=== PATIENT | male | born 1995 ===

== ENCOUNTER 2021-07-18 16:49 | Emergency (ER) | payer SELFPAY ==
[2021-07-18] MEDS ORDERED: TETANUS,DIPH,PERTUSS(ACELL) VACCINE 0.5 ML SYRINGE IM ONE (16:56)
[2021-07-18] MEDS ORDERED: HYDROcodone/ACETAMINOPHEN 7.5-325MG TAB PO ONE (16:56)
[2021-07-18] MEDS ORDERED: LACTATED RINGERS 1,000 ML IV ONE (17:17)
[2021-07-18 17:37] LABS: Basophils % (Auto) 0.7 % (0.0-1.8); Eosinophils # (Auto) 0.1 K/mm3 (0.0-0.4); Eosinophils % (Auto) 1.2 % (0.0-4.3); Hematocrit 41.4 % (35.5-45.6); Hemoglobin 14.3 gm/dl (11.8-15.2); Lymphocytes # (Auto) 2.1 K/mm3 (1.2-5.4); Mean Corpuscular HGB Conc 35 % (32-34); Mean Corpuscular Volume 79 fl (84-94); Monocytes # (Auto) 0.7 K/mm3 (0.0-0.8); Monocytes % (Auto) 9.4 % (0.0-7.3); Platelet Count 266 K/mm3 (140-440); Red Blood Count 5.28 M/mm3 (3.65-5.03); Red Cell Distribution Width 13.5 % (13.2-15.2)
--- NOTE | 2021-07-18 17:55 | XRay Report ---
XR hip 2-3V RT INDICATION / CLINICAL INFORMATION: right hip pain after hitting against metal lift. COMPARISON: None available. FINDINGS: BONES/JOINT(S): No acute fracture or subluxation. No significant degenerative changes. SOFT TISSUES: No significant abnormality. ADDITIONAL FINDINGS: None. Signer Name: Mitchell Gold MD Signed: 07/18/2021 5:51 PM Workstation Name: [id number]
[2021-07-18 17:57] LABS: Creatine Kinase MB 1.3 ng/mL (0.0-4.0)
[2021-07-18 17:59] LABS: Alanine Aminotransferase 15 units/L (7-56); Albumin 4.9 g/dL (3.9-5); BUN/Creatinine Ratio 19; Blood Urea Nitrogen 13 mg/dL (9-20); Calcium 9.5 mg/dL (8.4-10.2); Hemolysis Index 10
--- NOTE | 2021-07-18 18:07 | Emergency Department Report ---
- General Chief complaint: Burn/Smoke Inhalation Stated complaint: ELECTRICAL SHOCK Time Seen by Provider: 07/18/21 16:54 Source: patient, [employer] worker Mode of arrival: Ambulatory Limitations: Language Barrier - History of Present Illness Initial comments: Rakesh, security systems specialist used for [place] interpretation for HPI and review of systems Patient is a 26-year-old male presents emergency room with complaints of an electrical shock and burn that occurred at 2 PM today. 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 He states that there was a cable hanging from the ceiling and he grabbed it with his right hand. He states he then felt a shock through his hand and his arm. He states he has pain in his hand and a tingling sensation. He states he has some mild chest pain and was feeling palpitations like his heart was racing. He states that the jolt pushed him backwards and he hit the right side of his hip against a lift he was on. He did not fall off the left. He denies any shortness of breath, loss of consciousness, vomiting, vision changes, weakness. No past medical history. No allergies to medications. He is unsure of his last tetanus immunization. - Related Data Allergies Allergy/AdvReac Type Severity Reaction Status Date / Time No Known Allergies Allergy Unverified 07/18/21 16:53 Abscess Boil HPI - HPI Chief Complaint: Burn/Smoke Inhalation Stated Complaint: ELECTRICAL SHOCK Time Seen by Provider: 07/18/21 16:54 Allergies/Adverse Reactions: Allergies Allergy/AdvReac Type Severity Reaction Status Date / Time No Known Allergies Allergy Unverified 07/18/21 16:53 ED Review of Systems ROS: Stated complaint: ELECTRICAL SHOCK Other details as noted in HPI Comment: All other systems reviewed and negative ED Past Medical Hx - Past Medical History Previous Medical History?: No - Surgical History Additional Surgical History: ear reconstruction ED Physical Exam - General Limitations: No Limitations, Language Barrier General appearance: alert, in no apparent distress - Head Head exam: Present: atraumatic, normocephalic - Eye Eye exam: Present: normal appearance - ENT ENT exam: Present: mucous membranes moist - Respiratory Respiratory exam: Present: normal lung sounds bilaterally. Absent: respiratory distress, wheezes, rales, rhonchi, stridor, chest wall tenderness, accessory muscle use, decreased breath sounds, prolonged expiratory - Cardiovascular Cardiovascular Exam: Present: regular rate, normal rhythm, normal heart sounds. Absent: systolic murmur, diastolic murmur, rubs, gallop - Extremities Exam Extremities exam: Present: full ROM (mild ttp to the right lateral hip, FROM of the RLE, no deformity, neurovascularly intact BUE/BLE), other (small superifical pin point area of initial electrical burn to the right palmar middle finger, mild superficial burn to the right palm, compartments are soft, FROM of the RUE, no contracture of the hand, no exit wound identified, did a full body examination with MASOUD mayes and ameena, police department secretary) - Neurological Exam Neurological exam: Present: alert, oriented X3 - Psychiatric Psychiatric exam: Present: normal affect, normal mood - Skin Skin exam: Present: warm, dry ED Course Vital Signs 07/18/21 07/18/21 07/18/21 16:50 16:53 17:09 Temperature 98.2 F Pulse Rate 76 101 H Respiratory 20 18 21 Rate Blood Pressure Blood Pressure 112/72 [Right] O2 Sat by Pulse 100 98 97 Oximetry 07/18/21 07/18/21 07/18/21 17:15 17:31 17:45 Temperature Pulse Rate 84 76 88 Respiratory 10 L 11 L 12 Rate Blood Pressure 114/79 114/72 117/82 Blood Pressure [Right] O2 Sat by Pulse 99 100 Oximetry 07/18/21 07/18/21 07/18/21 18:01 18:15 18:31 Temperature Pulse Rate 119 H 96 H 95 H Respiratory 12 11 L 13 Rate Blood Pressure 114/79 141/99 120/82 Blood Pressure [Right] O2 Sat by Pulse 99 100 98 Oximetry 07/18/21 07/18/21 07/18/21 19:01 19:31 20:01 Temperature Pulse Rate 104 H 98 H 91 H Respiratory 13 12 12 Rate Blood Pressure 115/68 97/57 109/70 Blood Pressure [Right] O2 Sat by Pulse 99 98 99 Oximetry 07/18/21 07/18/21 07/18/21 20:31 20:48 21:01 Temperature Pulse Rate 92 H 110 H Respiratory 17 18 12 Rate Blood Pressure 109/70 109/70 Blood Pressure [Right] O2 Sat by Pulse 98 99 97 Oximetry 07/18/21 07/18/21 07/18/21 21:31 22:01 22:35 Temperature Pulse Rate 93 H 102 H 101 H Respiratory 8 L 11 L 18 Rate Blood Pressure 93/52 116/78 Blood Pressure 116/78 [Right] O2 Sat by Pulse 98 99 99 Oximetry - Consultations Consultation #1: 07/18/21 19:[address] Camacho, [facility] burn attending, regarding patient presentation results, he advised to transfer patient and he will accept and resume care with patient, he states that patient will be admitted directly to a floor bed and he will be observed on a monitor, patient be transported via EMS ED Medical Decision Making - Lab Data Result diagrams: 07/18/21 17:05 07/18/21 17:05 Lab Results 07/18/21 07/18/21 Range/Units 17:05 17:05 WBC 7.4 (4.5-11.0) K/mm3 RBC 5.28 H (3.65-5.03) M/mm3 Hgb 14.3 (11.8-15.2) gm/dl Hct 41.4 (35.5-45.6) % MCV 79 L (84-94) fl MCH 27 L (28-32) pg MCHC 35 H (32-34) % RDW 13.5 (13.2-15.2) % Plt Count 266 (140-440) K/mm3 Lymph % (Auto) 28.0 (13.4-35.0) % Harris % (Auto) 9.4 H (0.0-7.3) % Eos % (Auto) 1.2 (0.0-4.3) % Baso % (Auto) 0.7 (0.0-1.8) % Lymph # (Auto) 2.1 (1.2-5.4) K/mm3 Harris # (Auto) 0.7 (0.0-0.8) K/mm3 Eos # (Auto) 0.1 (0.0-0.4) K/mm3 Baso # (Auto) 0.0 (0.0-0.1) K/mm3 Seg Neutrophils % 60.7 (40.0-70.0) % Seg Neutrophils # 4.5 (1.8-7.7) K/mm3 Sodium 137 (137-145) mmol/L Potassium 4.3 (3.6-5.0) mmol/L Chloride 100.8 (98-107) mmol/L Carbon Dioxide 25 (22-30) mmol/L Anion Gap 16 mmol/L BUN 13 (9-20) mg/dL Creatinine 0.7 L (0.8-1.3) mg/dL Estimated GFR > 60 ml/min BUN/Creatinine Ratio 19 % Glucose 94 (75-100) mg/dL Calcium 9.5 (8.4-10.2) mg/dL Total Bilirubin 0.30 (0.1-1.2) mg/dL AST 19 (5-40) units/L ALT 15 (7-56) units/L Alkaline Phosphatase 65 (35-129) units/L Total Creatine Kinase 92 (55-170) units/L CK-MB (CK-2) 1.3 (0.0-4.0) ng/mL CK-MB (CK-2) Rel Index 1.4 (0-4) Troponin T < 0.010 (0.00-0.029) ng/mL Total Protein 7.6 (6.3-8.2) g/dL Albumin 4.9 (3.9-5) g/dL Albumin/Globulin Ratio 1.8 % - EKG Data EKG shows normal: sinus rhythm, axis, intervals, QRS complexes Rate: normal - EKG Data 07/18/21 19:34 ST elevation from normal early repolarization No STEMI - Radiology Data Radiology results: report reviewed Ordering Physician: IRASEMA BONE Date of Service: 07/18/21 Procedure(s): XR hip 2-3V RT Accession Number(s): [id number] cc: IRASEMA BONE Fluoro Time In Minutes: XR hip 2-3V RT INDICATION / CLINICAL INFORMATION: right hip pain after hitting against metal lift. COMPARISON: None available. FINDINGS: BONES/JOINT(S): No acute fracture or subluxation. No significant degenerative changes. SOFT TISSUES: No significant abnormality. ADDITIONAL FINDINGS: None. Signer Name: Mitchell Gold MD Signed: 07/18/2021 5:51 PM Workstation Name: [id number] Transcribed By: AIDA Dictated By: Mitchell Gold MD Electronically Authenticated By: Mitchell Gold MD Signed Date/Time: 07/18/211750 DD/ 50 TD/TT: Print - Medical Decision Making Rakesh, security systems specialist used for [place] interpretation for HPI and review of systems Patient is a 26-year-old male presents emergency room with complaints of an electrical shock and burn that occurred at 2 PM today. 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 He states that there was a cable hanging from the ceiling and he grabbed it with his right hand. He states he then felt a shock through his hand and his arm. He states he has pain in his hand and a tingling sensation. He states he has some mild chest pain and was feeling palpitations like his heart was racing. He states that the jolt pushed him backwards and he hit the right side of his hip against a lift he was on. He did not fall off the left. He denies any shortness of breath, loss of consciousness, vomiting, vision changes, weakness. No past medical history. No allergies to medications. He is unsure of his last tetanus immunization. Vitals are stable. On exam:small superifical pin point area of initial electrical burn to the right palmar middle finger, mild superficial burn to the right palm, compartments are soft, FROM of the RUE, no contracture of the hand, no exit wound identified, did a full body examination with MASOUD mayes and ninoska lindquistary, mild ttp to the right lateral hip, FROM of the RLE, no deformity, neurovascularly intact BUE/BLE. X-ray right hip: BONES/JOINT(S): No acute fracture or subluxation. No significant degenerative changes. SOFT TISSUES: No significant abnormality. DDITIONAL FINDINGS: None. EKG shows normal early repolarization, otherwise stable. Labs are normal. Troponin is negative. CK is normal. Discussed case with Dr. Damico, ER attending who advised speaking with the [facility].spoke to Dr. Camacho, [facility] attending, regarding patient presentation results, he advised to transfer patient and he will accept and resume care with patient, he states that patient will be admitted directly to a floor bed and he will be observed on a monitor, patient be transported via EMS. ameena, police department secretary/patient payroll representative interpreted all results with patient and discussed transfer to [facility], patient was agreeable with transfer. Patient was transported via EMS. Critical care attestation.: If time is entered above; I have spent that time in minutes in the direct care of this critically ill patient, excluding procedure time. ED Disposition Clinical Impression: Palpitations Electrical shock of hand Qualifiers: Encounter type: initial encounter Qualified Code(s): T75.4XXA - Electrocution, initial encounter Chest pain Qualifiers: Chest pain type: unspecified Qualified Code(s): R07.9 - Chest pain, unspecified Disposition: 04 [facility] Is pt being admited?: No Does the pt Need Aspirin: No Condition: Stable Instructions: Nonspecific Chest Pain, Adult Referrals: PRIMARY CARE, [Primary Care Provider] - 3-5 Days Time of Disposition: 19:35 Print Language: MAURITANIAN
[2021-07-18] MEDS ORDERED: ONDANSETRON 4 MG/2 ML INJ IV ONE (22:25)
[2021-07-18] MEDS ORDERED: MORPHINE 4 MG/1 ML INJ IV ONE (22:25)
[2021-07-18 22:35] VITALS: BP 116/78
--- NOTE | 2021-07-19 08:50 | Electrocardiograph Report ---
[facility] Test Date: 2021-07-18 Test Time: 16:58:57 Pat Name: DAVID AMARAL Department: Room: Gender: M Policy Analyst: CJ : 1995 Requested By: BIANKA GARCIA Order Number: [id number] Reading MD: Bassem Owusu Measurements Intervals [place] Rate: 80 P: 75 WI: 136 QRS: 63 QRSD: 113 T: 56 QT: 348 QTc: 402 Interpretive Statements Sinus rhythm RSR' IN V1 OR V2, PROBABLY NORMAL VARIANT No previous ECG available for comparison Electronically Signed On 07-19-2021 8:49:32 EDT by Bassem Owusu
== END 2021-07-18 22:32 ==
LOC: ED 16:49
DX: T75.4XXA Electrocution, initial encounter (principal); R07.89 Other chest pain; W86.8XXA Exposure to other electric current, initial encounter; Y93.89 Activity, other specified; Y92.89 Other specified places as the place of occurrence of the external cause; Y99.8 Other external cause status
CPT/HCPCS: 36415; 73502; 80053; 82550; 82553; 84484; 85025; 90471; 90715; 93005; 96374; 96375; 99285; J2270; J2405; J7120